=== PATIENT | male | born 1995 | race Caucasian/White ===

== ENCOUNTER 2020-01-01 11:08 | Emergency (ER) | payer MEDICAID ==
[~2020-01-01] VITALS: Ht 190.5 cm; Wt 81.6 kg
[~2020-01-01 11:08] MED LIST: [UNRECOGNIZED DRUG - CODE] PO
[2020-01-01 11:11] VITALS: BP 110/63
[2020-01-01 12:23] VITALS: BP 110/63
== END 2020-01-01 12:23 | disposition home or self-care (01) ==
LOC: MED 11:08
DX: G89.29 Other chronic pain (principal); M54.9 Dorsalgia, unspecified; M54.12 Radiculopathy, cervical region
CPT/HCPCS: 99281

== ENCOUNTER 2020-06-17 07:46 | Emergency (ER) | payer MEDICAID ==
[~2020-06-17] VITALS: Ht 190.5 cm; Wt 97.5 kg
[~2020-06-17 07:46] MED LIST changes: +IBUP100T4 PO; -[UNRECOGNIZED DRUG - CODE] PO
[2020-06-17 07:52] VITALS: BP 118/74
--- NOTE | 2020-06-17 07:56 | NUR ---
PT W/C ASSISTED TO ER BED 7.
--- NOTE | 2020-06-17 07:59 | NUR ---
Dr. Pierre is evaluating the patient at bedside.
--- NOTE | 2020-06-17 07:59 | NUR ---
25 y/o M coming in from home with c/c lower back pain. Patient presents A&Ox4, wheelchair assisted and states at 0600 he was lifting a heavy pot at home and began experiencing lower back pain. Pt reports 10/10, sharp/constant, radiating to his left thigh. Pt states he has had lower back pain for a year but has never gone to have his back checked out. Pt does not report any medications prior to arrival. Pt denies abdominal pain, any urinary symptoms, N/V/D, fever, chills, chest pain. Pt placed onto blood pressure cuff and pulse oximetry. Bed locked in lowest position, side rails x 1. PMH/Meds: Denies NKA
[2020-06-17] MEDS ORDERED: HYDROcodone/APAP 5/325 MG 1 TAB TAB PO ONE (08:10)
[2020-06-17] MEDS ORDERED: KETOROLAC 60 MG/2 ML VIAL IM ONE (08:10)
--- NOTE | 2020-06-17 08:33 | NUR ---
Patient states minor relief after medication administration; pain is at 8/10 without movement. Respirations even/unlabored. Bed locked in lowest position, side rails x 1, call light in reach.
--- NOTE | 2020-06-17 08:45 | NUR ---
Patient states pain remains 8/10 laying still, 10/[address] Pierre made aware.
[2020-06-17] MEDS ORDERED: ONDANSETRON 4 MG ODT PO ONE (08:50)
[2020-06-17] MEDS ORDERED: MORPHINE SULFATE 4 MG/ML SYR IM ONE ×2 (08:50→09:30)
--- NOTE | 2020-06-17 10:03 | NUR ---
PATIENT TAKEN TO CT VIA TOÑO
--- NOTE | 2020-06-17 10:28 | NUR ---
Dr. Pierre is evaluating the patient at bedside.
[2020-06-17] MEDS ORDERED: ACET-8386 PO (10:47)
[2020-06-17 10:53] VITALS: BP 117/76
--- NOTE | 2020-06-17 10:53 | NUR ---
Patient discharged with v/s stable. Written and verbal after care instructions given and explained. Patient alert, oriented and verbalized understanding of instructions. Ambulatory with steady gait. All questions addressed prior to discharge. ID band removed. Patient advised to follow up with PMD. Rx of Hydrocodone/Acetaminophen given. Patient educated on indication of medication including possible reaction and side effects. Opportunity to ask questions provided and answered.
== END 2020-06-17 10:53 | disposition home or self-care (01) ==
LOC: MED 07:46
DX: M54.30 Sciatica, unspecified side (principal); M51.36 Other intervertebral disc degeneration, lumbar region; Z79.899 Other long term (current) drug therapy
CPT/HCPCS: 72131; 96372; 99284; J1885; J2270; Q0162